=== PATIENT | male | born 1955 | race African-American/Black ===

== ENCOUNTER → 2017-05-27 | Outpatient (CLI) | payer OTHER | END | disposition home or self-care (01) | LOC: HKI 15:02 | DX: M16.12 Unilateral primary osteoarthritis, left hip (principal) | CPT/HCPCS: 73502 ==

== ENCOUNTER → 2017-08-09 | Outpatient (CLI) | payer OTHER | END | disposition home or self-care (01) | LOC: HKI 11:13 | DX: Z01.818 Encounter for other preprocedural examination (principal) | CPT/HCPCS: Z7500 ==